=== PATIENT | male | born 1995 | race Caucasian/White ===

== ENCOUNTER 2019-11-07 16:41 | Emergency (ER) | payer OTHER, SELFPAY ==
[2019-11-07 16:57] VITALS: BP 148/80; PULSE 79; RESP 18; TEMP 36.8; O2SAT 100; BMI 22.4
--- NOTE | 2019-11-07 17:01 | DI.US.S_ITS ---
PROCEDURE: US RENAL COMPLETE INDICATIONS: HISTORY OF RENAL CALCULI, MULTIPLE STONES 11/04 RULE OUT TECHNIQUE: Real-time scanning was performed of the kidneys and bladder, with image documentation. COMPARISON: None. FINDINGS: Kidneys: Kidneys are normal in size. Right kidney measures 10.3 cm long; left kidney measures 10.9 cm long. Right renal cortical thickness is 1.0 cm; left renal cortical thickness is 1.6 cm. Renal cortical echotexture is normal. No hydronephrosis. Punctate echogenic foci are present bilaterally suggesting nonobstructing calculi. There is a simple 7 mm superior right renal cyst and a superior 2.5 cm diameter left renal cyst. Bladder: Pre-void bladder volume is 63 mL. Post-void residual is zero mL. Pre-void images demonstrate no intraluminal masses or stones. There is questionable thickening of the bladder wall versus incomplete distention. On pre-void images, the left ureteral jets a jet is noted with color Doppler interrogation. (Of note, ureteral jets may not be detectable in up to 25% of cases due to insufficient differences in specific gravity between ureteral and bladder urine). Miscellaneous: No free pelvic fluid. IMPRESSION: 1. No hydronephrosis. 2. Nonobstructing nephrolithiasis. 3. Questionable thickening of the bladder wall versus incomplete distention. No postvoid residual. Dictated by: Azul Daly M.D. on 11/07/2019 at 20:28 Approved by: Azul Daly M.D. on 11/07/2019 at 20:32
[2019-11-07 17:02] VITALS: PULSE 64; O2SAT 98
--- NOTE | 2019-11-07 17:03 | ED.ABDPAIN ---
HPI - Abdominal Pain <MAXI Esposito - Last Filed: 11/07/19 20:57> General Chief Complaint: Abdominal Pain Stated Complaint: THINKS KIDNEY STONES BACK PAIN Time Seen by Provider: 11/07/19 16:45 Source: patient Mode of arrival: Ambulatory Limitations: no limitations History of Present Illness HPI narrative: 23yo male with history of renal calculi in the past, presents to the emergency department for known renal calculi after being seen on 11/05/2019 at [facility]. He presents emergency department for worsening vomiting and pain. Patient states he has bilateral back pain and has been vomiting frequently. He states his last episode was at 1530. He has been able to keep some fluids down not a lot of food. He reports bilateral flank pain that is worse on the left than the right and right-sided abdominal pain--reports this is consistent with previous pain 2 days ago.. Patient denies any blood in the urine, chest pain, shortness of breath, fevers, chills, dizziness, or any other concerns. Related Data Previous Rx's Medication Instructions Recorded ondansetron HCl 4 mg PO Q6H PRN #20 tab 11/07/19 tamsulosin 0.4 mg PO BEDTIME #20 cap 11/07/19 Allergies Allergy/AdvReac Type Severity Reaction Status Date / Time No Known Drug Allergies Allergy Verified 11/07/19 16:57 Review of Systems <MAXI Esposito - Last Filed: 11/07/19 20:57> Review of Systems Narrative: REVIEW OF SYSTEMS: GENERAL: Denies fever, chills, malaise, or wt. loss. HENT: No head trauma. EYES: No vision changes. CARDIOVASCULAR: No chest pain. RESPIRATORY: No shortness of breath or cough. GASTROINTESTINAL: Complains of abdominal pain, see HPI GENITOURINARY: No reports flank pain, see HPI. MUSCULOSKELETAL: No pain, weakness, or trauma. INTEGUMENTARY: No rash, lesions, or pruritus. NEURO: No numbness or tingling. PSYCH: No behavior or mood changes. Patient History <MAXI Esposito - Last Filed: 11/07/19 20:57> Medical History No significant medical problems (Acute) Social History Smoking Status: Never smoker Smoking Status: Never smoker Substance Use Type: does not use Exam <MAXI Esposito - Last Filed: 11/07/19 20:57> Initial Vital Signs Initial Vital Signs: Vital Signs Temperature 98.2 F 11/07/19 16:57 Pulse Rate 79 11/07/19 16:57 Respiratory Rate 18 11/07/19 16:57 Blood Pressure 148/80 H 11/07/19 16:57 Pulse Oximetry 100 11/07/19 16:57 PHYSICAL EXAMINATION: GENERAL: Well groomed, alert, and cooperative. Answers questions promptly and appropriately. Vital signs noted. HENT: Normocephalic, atraumatic. Hearing intact. Oral mucosa is pink and moist. EYES: Conjunctiva pink, sclera white, no periorbital swelling. CARDIOVASCULAR: S1 and S2 sounds normal. Regular rate and rhythm, no murmurs, clicks, or bruits. No pedal edema. RESPIRATORY: Normal respiratory rate, trachea midline, airway patent. No stridor, nasal flaring or accessory muscle use. Lungs are clear in all bolaños without wheeze, rhonchi, or crackles. GASTROINTESTINAL: Bowel sounds normoactive. Abdomen with right upper quadrant pain. No organomegaly, no palpable masses. GENITALURINARY: Bilateral CVA tenderness. MUSCULOSKELETAL: Normal gait and coordination. Equal tone and mass bilaterally. EXTREMITIES: CMS intact, no pedal edema. SKIN: Warm, dry, soft, appropriate color for ethnicity. No lesions, rashes, or wounds to visualized areas. NEURO: Alert and Oriented X 3. Good coordination. No ataxia, or sensory deficits, or cognitive issues. PSYCH: Appropriate affect and mood. <Nick Newell DO - Last Filed: 11/08/19 01:24> Initial Vital Signs Initial Vital Signs: Vital Signs Temperature 98.2 F 11/07/19 16:57 Pulse Rate 79 11/07/19 16:57 Respiratory Rate 18 11/07/19 16:57 Blood Pressure 148/80 H 11/07/19 16:57 Pulse Oximetry 100 11/07/19 16:57 Course <MAXI Esposito - Last Filed: 11/07/19 20:57> Course Course Narrative: Records obtained from [facility] for visit on 11/04/2019: CT abdomen pelvis: Shows nonobstructing bilateral nephrolithiasis, no greater than 3 mm. Mild urinary bladder wall thickening. Labs: WBC: 8, RBC: 5.11, Na 137, K 103, creatinine 0.9, BUN 18, GFR 107, lipase 26. Patient was discharged with tamsulosin and Percocet. Patient initially given NS 1L, ondansetron, and Toradol in the emergency department. Upon re-evaluation, patient reports reduced pain and nausea. Updated on ultrasound results, discussed plan of care, patient agreed with plan of care. Orders Ordered: ED Orders 11/07/19 17:00 Complete Blood Count AUTO DIFF Stat Comprehensive Metabolic Panel Stat Lipase Stat 11/07/19 17:01 US renal complete Stat 11/07/19 17:57 Urinalysis and Microscopic Stat Discontinued Medications Sodium Chloride (Normal Saline 0.9%) 1,000 mls @ 1,000 mls/hr IV BOLUS ONE Stop: 11/07/19 18:01 Last Infusion: 11/07/19 18:00 Dose: 0 mls/hr Documented by: Admin: 11/07/19 17:09 Dose: 1,000 mls/hr Documented by: MOMO Ketorolac Tromethamine (Toradol) 30 mg IV NOW ONE Stop: 11/07/19 17:03 Last Admin: 11/07/19 17:08 Dose: 30 mg Documented by: MOMO Ondansetron HCl (Zofran) 4 mg IV NOW ONE Stop: 11/07/19 17:03 Last Admin: 11/07/19 17:09 Dose: 4 mg Documented by: MOMO Consultations Consultation #1: Patient staffed with Dr. Newell discussed tests results and plan of care. Vital Signs Vital signs: Vital Signs - 8 hr 11/07/19 17:30 11/07/19 18:00 11/07/19 19:06 Pulse Rate 63 56 L 57 L Respiratory Rate 13 Blood Pressure 112/53 L Pulse Oximetry 99 97 100 <Nick Newell, DO - Last Filed: 11/08/19 01:24> Orders Ordered: ED Orders 11/07/19 17:00 Complete Blood Count AUTO DIFF Stat Comprehensive Metabolic Panel Stat Lipase Stat 11/07/19 17:01 US renal complete Stat 11/07/19 17:57 Urinalysis and Microscopic Stat Discontinued Medications Sodium Chloride (Normal Saline 0.9%) 1,000 mls @ 1,000 mls/hr IV BOLUS ONE Stop: 11/07/19 18:01 Last Infusion: 11/07/19 18:00 Dose: 0 mls/hr Documented by: Admin: 11/07/19 17:09 Dose: 1,000 mls/hr Documented by: MOMO Ketorolac Tromethamine (Toradol) 30 mg IV NOW ONE Stop: 11/07/19 17:03 Last Admin: 11/07/19 17:08 Dose: 30 mg Documented by: MOMO Ondansetron HCl (Zofran) 4 mg IV NOW ONE Stop: 11/07/19 17:03 Last Admin: 11/07/19 17:09 Dose: 4 mg Documented by: MOMO Vital Signs Vital signs: Vital Signs - 8 hr 11/07/19 17:30 11/07/19 18:00 11/07/19 19:06 Pulse Rate 63 56 L 57 L Respiratory Rate 13 Blood Pressure 112/53 L Pulse Oximetry 99 97 100 MDM - Abdominal Pain <MAXI Esposito - Last Filed: 11/07/19 20:57> Medical Records Attestation: I reviewed the patient's medical records. Lab Data Attestation: I reviewed the patient's lab results. Result diagrams: 11/07/19 17:00 11/07/19 17:00 Labs: Lab Results 11/07/19 11/07/19 11/07/19 Range/Units 17:00 17:00 17:00 WBC 7.1 (4.5-11.0) X10^3/uL RBC 5.09 (4.5-5.9) X10^6/uL Hgb 15.3 (13.5-17.5) g/dL Hct 44.4 (41-53) % MCV 87.2 (80-100) fL MCH 30.0 (26-34) PG MCHC 34.4 (30-36) % RDW 12.6 (11.6-14.8) % Plt Count 238 (150-400) X10^3/uL Neut % (Auto) 58.2 (50-75) % Lymph % (Auto) 31.1 (25-40) % Josephine % (Auto) 7.8 (3-14) % Eos % (Auto) 2.2 (2-4) % Baso % (Auto) 0.7 (0-2) % Neut # (Auto) 4100 (8401-8942) /uL Lymph # (Auto) 2200 (2636-3038) /uL Josephine # (Auto) 600 (0-900) /uL Eos # (Auto) 200 (0-450) /uL Baso # (Auto) 100 (0-100) /uL Sodium 138 (137-145) mmol/L Potassium 4.2 (3.4-5.1) mmol/L Chloride 103 (98-107) mmol/L Carbon Dioxide 28 (22-32) mmol/L BUN 18 (9-20) mg/dL Creatinine 0.84 (0.66-1.25) mg/dL Estimated GFR > 60.0 (>60) mL/min BUN/Creatinine Ratio 21.4 (6-22) Glucose 101 H (70-100) mg/dL Calcium 9.5 (8.4-10.2) mg/dL Total Bilirubin 0.8 (0.2-1.3) mg/dL AST 25 (17-59) IU/L ALT 19 (<50) IU/L Alkaline Phosphatase 60 (38-126) U/L Total Protein 7.3 (6.3-8.2) g/dL Albumin 4.5 (3.5-5.0) g/dL Globulin 2.8 (1.7-4.1) g/dL Albumin/Globulin Ratio 1.6 (1.0-2.8) Lipase 28 (23-300) U/L Urine Color Urine Appearance Urine pH (4.5-8.0) Ur Specific [place] (1.000-1.035) Urine Protein (Negative) Urine Glucose (UA) (Negative) g/dL Urine Ketones (NEGATIVE) Urine Occult Blood (Negative) Urine Nitrate (Negative) Urine Bilirubin (NEGATIVE) Urine Urobilinogen (0.2) E.U./dL Ur Leukocyte Esterase (NEGATIVE) Urine RBC (0-5/HPF) Urine WBC (0-5/HPF) Calcium Oxalate Crystal Urine Bacteria (None) Ur Culture Indicated? 11/07/19 Range/Units 17:57 WBC (4.5-11.0) X10^3/uL RBC (4.5-5.9) X10^6/uL Hgb (13.5-17.5) g/dL Hct (41-53) % MCV (80-100) fL MCH (26-34) PG MCHC (30-36) % RDW (11.6-14.8) % Plt Count (150-400) X10^3/uL Neut % (Auto) (50-75) % Lymph % (Auto) (25-40) % Josephine % (Auto) (3-14) % Eos % (Auto) (2-4) % Baso % (Auto) (0-2) % Neut # (Auto) (5280-5384) /uL Lymph # (Auto) (0431-1163) /uL Josephine # (Auto) (0-900) /uL Eos # (Auto) (0-450) /uL Baso # (Auto) (0-100) /uL Sodium (137-145) mmol/L Potassium (3.4-5.1) mmol/L Chloride (98-107) mmol/L Carbon Dioxide (22-32) mmol/L BUN (9-20) mg/dL Creatinine (0.66-1.25) mg/dL Estimated GFR (>60) mL/min BUN/Creatinine Ratio (6-22) Glucose (70-100) mg/dL Calcium (8.4-10.2) mg/dL Total Bilirubin (0.2-1.3) mg/dL AST (17-59) IU/L ALT (<50) IU/L Alkaline Phosphatase (38-126) U/L Total Protein (6.3-8.2) g/dL Albumin (3.5-5.0) g/dL Globulin (1.7-4.1) g/dL Albumin/Globulin Ratio (1.0-2.8) Lipase (23-300) U/L Urine Color Yellow Urine Appearance Clear Urine pH 5.5 (4.5-8.0) Ur Specific [place] 1.025 (1.000-1.035) Urine Protein Negative (Negative) Urine Glucose (UA) Negative (Negative) g/dL Urine Ketones Negative (NEGATIVE) Urine Occult Blood Negative (Negative) Urine Nitrate Negative (Negative) Urine Bilirubin Negative (NEGATIVE) Urine Urobilinogen 0.2 (0.2) E.U./dL Ur Leukocyte Esterase Negative (NEGATIVE) Urine RBC None seen (0-5/HPF) Urine WBC 0-1/hpf (0-5/HPF) Calcium Oxalate Crystal Occasional H Urine Bacteria None seen (None) Ur Culture Indicated? Cult not indicated Imaging Data Renal Ultrasound: Radiologist's Impression: [address] [address] Ultrasound Report Signed Patient: Humberto Starkey RMR#: [id number] : 1995Acct:[id number] Age/Sex: MDate of Service: 11/07/19 Loc: ED Accession Number: [id number] Procedure: US renal complete Ordering Provider: Dionna Aj PROCEDURE: US RENAL COMPLETE INDICATIONS: HISTORY OF RENAL CALCULI, MULTIPLE STONES 11/04 RULE OUT TECHNIQUE: Real-time scanning was performed of the kidneys and bladder, with image documentation. COMPARISON: None. FINDINGS: Kidneys: Kidneys are normal in size. Right kidney measures 10.3 cm long; left kidney measures 10.9 cm long. Right renal cortical thickness is 1.0 cm; left renal cortical thickness is 1.6 cm. Renal cortical echotexture is normal. No hydronephrosis. Punctate echogenic foci are present bilaterally suggesting nonobstructing calculi. There is a simple 7 mm superior right renal cyst and a superior 2.5 cm diameter left renal cyst. Bladder: Pre-void bladder volume is 63 mL. Post-void residual is zero mL. Pre-void images demonstrate no intraluminal masses or stones. There is questionable thickening of the bladder wall versus incomplete distention. On pre-void images, the left ureteral jets a jet is noted with color Doppler interrogation. (Of note, ureteral jets may not be detectable in up to 25% of cases due to insufficient differences in specific gravity between ureteral and bladder urine). Miscellaneous: No free pelvic fluid. IMPRESSION: 1. No hydronephrosis. 2. Nonobstructing nephrolithiasis. 3. Questionable thickening of the bladder wall versus incomplete distention. No postvoid residual. Dictated by: Azul Daly M.D. on 11/07/2019 at 20:28 Approved by: Azul Daly M.D. on 11/07/2019 at 20:32 MDM Narrative Medical decision making narrative: 23-year-old male presenting to the emergency department for known nephrolithiasis, patient returns emergency department for continued pain. pharmacy technologist initially saw a stone within the ureter within the prostate, official read did not mention this, however there is mention of left ureteral jet color on Doppler interrogation. Incidental renal cysts were noted. Laboratory work is non-remarkable, renal function is within normal limits. No hydronephrosis noted. Patient was prescribed nausea medicine and tamsulosin, he was referred to urologist for further follow-up and evaluation. No signs of bacterial infection his urine was without blood or bacteria. Calcium oxalate crystals were noted in the urine. Return precautions given for new or worsening symptoms. Patient agreed to plan of care verbalized understanding. <Nick Newell, - Last Filed: 11/08/19 01:24> Lab Data Labs: Lab Results 11/07/19 11/07/19 11/07/19 Range/Units 17:00 17:00 17:00 WBC 7.1 (4.5-11.0) X10^3/uL RBC 5.09 (4.5-5.9) X10^6/uL Hgb 15.3 (13.5-17.5) g/dL Hct 44.4 (41-53) % MCV 87.2 (80-100) fL MCH 30.0 (26-34) PG MCHC 34.4 (30-36) % RDW 12.6 (11.6-14.8) % Plt Count 238 (150-400) X10^3/uL Neut % (Auto) 58.2 (50-75) % Lymph % (Auto) 31.1 (25-40) % Josephine % (Auto) 7.8 (3-14) % Eos % (Auto) 2.2 (2-4) % Baso % (Auto) 0.7 (0-2) % Neut # (Auto) 4100 (6569-5206) /uL Lymph # (Auto) 2200 (9185-5163) /uL Josephine # (Auto) 600 (0-900) /uL Eos # (Auto) 200 (0-450) /uL Baso # (Auto) 100 (0-100) /uL Sodium 138 (137-145) mmol/L Potassium 4.2 (3.4-5.1) mmol/L Chloride 103 (98-107) mmol/L Carbon Dioxide 28 (22-32) mmol/L BUN 18 (9-20) mg/dL Creatinine 0.84 (0.66-1.25) mg/dL Estimated GFR > 60.0 (>60) mL/min BUN/Creatinine Ratio 21.4 (6-22) Glucose 101 H (70-100) mg/dL Calcium 9.5 (8.4-10.2) mg/dL Total Bilirubin 0.8 (0.2-1.3) mg/dL AST 25 (17-59) IU/L ALT 19 (<50) IU/L Alkaline Phosphatase 60 (38-126) U/L Total Protein 7.3 (6.3-8.2) g/dL Albumin 4.5 (3.5-5.0) g/dL Globulin 2.8 (1.7-4.1) g/dL Albumin/Globulin Ratio 1.6 (1.0-2.8) Lipase 28 (23-300) U/L Urine Color Urine Appearance Urine pH (4.5-8.0) Ur Specific [place] (1.000-1.035) Urine Protein (Negative) Urine Glucose (UA) (Negative) g/dL Urine Ketones (NEGATIVE) Urine Occult Blood (Negative) Urine Nitrate (Negative) Urine Bilirubin (NEGATIVE) Urine Urobilinogen (0.2) E.U./dL Ur Leukocyte Esterase (NEGATIVE) Urine RBC (0-5/HPF) Urine WBC (0-5/HPF) Calcium Oxalate Crystal Urine Bacteria (None) Ur Culture Indicated? 11/07/19 Range/Units 17:57 WBC (4.5-11.0) X10^3/uL RBC (4.5-5.9) X10^6/uL Hgb (13.5-17.5) g/dL Hct (41-53) % MCV (80-100) fL MCH (26-34) PG MCHC (30-36) % RDW (11.6-14.8) % Plt Count (150-400) X10^3/uL Neut % (Auto) (50-75) % Lymph % (Auto) (25-40) % Josephine % (Auto) (3-14) % Eos % (Auto) (2-4) % Baso % (Auto) (0-2) % Neut # (Auto) (8041-3355) /uL Lymph # (Auto) (4723-3511) /uL Josephine # (Auto) (0-900) /uL Eos # (Auto) (0-450) /uL Baso # (Auto) (0-100) /uL Sodium (137-145) mmol/L Potassium (3.4-5.1) mmol/L Chloride (98-107) mmol/L Carbon Dioxide (22-32) mmol/L BUN (9-20) mg/dL Creatinine (0.66-1.25) mg/dL Estimated GFR (>60) mL/min BUN/Creatinine Ratio (6-22) Glucose (70-100) mg/dL Calcium (8.4-10.2) mg/dL Total Bilirubin (0.2-1.3) mg/dL AST (17-59) IU/L ALT (<50) IU/L Alkaline Phosphatase (38-126) U/L Total Protein (6.3-8.2) g/dL Albumin (3.5-5.0) g/dL Globulin (1.7-4.1) g/dL Albumin/Globulin Ratio (1.0-2.8) Lipase (23-300) U/L Urine Color Yellow Urine Appearance Clear Urine pH 5.5 (4.5-8.0) Ur Specific [place] 1.025 (1.000-1.035) Urine Protein Negative (Negative) Urine Glucose (UA) Negative (Negative) g/dL Urine Ketones Negative (NEGATIVE) Urine Occult Blood Negative (Negative) Urine Nitrate Negative (Negative) Urine Bilirubin Negative (NEGATIVE) Urine Urobilinogen 0.2 (0.2) E.U./dL Ur Leukocyte Esterase Negative (NEGATIVE) Urine RBC None seen (0-5/HPF) Urine WBC 0-1/hpf (0-5/HPF) Calcium Oxalate Crystal Occasional H Urine Bacteria None seen (None) Ur Culture Indicated? Cult not indicated Discharge Plan Departure Patient Disposition: Home Clinical Impression: Calculus, renal Discharge Date/Time: 11/07/19 19:14 Instructions: DI for Kidney Stones Activity Restrictions/Additional Instructions: Thank you for entrusting me with your care today. As discussed, there is a kidney stone in the part of urethra that is by your prostate. There multiple kidney stones noted in your kidneys which are not causing pain at this time. Today are small enough to pass at this time. I have given you prescription for tamsulosin which will help dilate the ureters to facilitate passage of kidney stones. Additionally, I have given you nausea medication. I have also referred due to urologist, please call to make an appointment for further evaluation testing especially if you continue to have multiple kidney stones. Return emergency department for any new or worsening symptoms such as severe pain, uncontrollable vomiting,, pain with urination, fevers, or other concerns. Use the oxycodone that was previously given to for pain control as well as ibuprofen. Prescriptions: New tamsulosin 0.4 mg capsule 0.4 mg PO BEDTIME Qty: 20 RF: 0 ondansetron HCl 4 mg tablet 4 mg PO Q6H PRN (Reason: nausea and vomiting) Qty: 20 RF: 0 Referrals: Shanelle Nunez MD [Physician] - <Nick Newell DO - Last Filed: 11/08/19 01:24> Cosign ED Attending Cosignature Attestation: I was immediately available in the department for consultation. This documentation has been reviewed and I agree with assessment and plan. Supervised by Nick Newell DO
[2019-11-07 17:07] LABS: Add Manual Diff / Slide Review NO; Basophils Absolute Auto 100 /uL (0-100); Basophils Percent Auto 0.7 % (0-2); Eosinophils Absolute Auto 200 /uL (0-450); Eosinophils Percent Auto 2.2 % (2-4); Hematocrit 44.4 % (41-53); Hemoglobin 15.3 g/dL (13.5-17.5); Lymphocytes Absolute Auto 2200 /uL (1100-4500); Lymphocytes Percent Auto 31.1 % (25-40); Mean Corpuscular HGB Conc 34.4 % (30-36); Mean Corpuscular Volume 87.2 fL (80-100); Monocytes Absolute Auto 600 /uL (0-900); Monocytes Percent Auto 7.8 % (3-14); Neutrophils Absolute Auto 4100 /uL (1500-7000); Neutrophils Percent Auto 58.2 % (50-75); Platelet Count 238 X10^3/uL (150-400); Red Blood Cell Count 5.09 X10^6/uL (4.5-5.9); Red Cell Distribution Width 12.6 % (11.6-14.8); White Blood Cell Count 7.1 X10^3/uL (4.5-11.0)
[2019-11-07] MEDS: KETOROLAC 60 MG/2 ML VIAL 30 MG IV (17:08)
[2019-11-07] MEDS: ONDANSETRON 4 MG/2 ML INJ IV (17:09)
[2019-11-07] MEDS: SODIUM CHLORIDE 0.9% 1,000 ML 1000 ML IV (17:09)
[2019-11-07 17:18] LABS: Alanine Aminotransferase 19 IU/L (<50); Albumin 4.5 g/dL (3.5-5.0); Albumin Globulin Ratio 1.6 (1.0-2.8); Alkaline Phosphatase 60 U/L (38-126); Aspartate Aminotransferase 25 IU/L (17-59); BUN Creatinine Ratio 21.4 (6-22); Bilirubin Total 0.8 mg/dL (0.2-1.3); Blood Urea Nitrogen 18 mg/dL (9-20); Calcium 9.5 mg/dL (8.4-10.2); Carbon Dioxide 28 mmol/L (22-32); Chloride 103 mmol/L (98-107); Estimated Glomerular Filt Rate > 60.0 mL/min (>60); Globulin 2.8 g/dL (1.7-4.1); Glucose 101 mg/dL (70-100); HEMOLYSIS < 15 (0-50); Lipase 28 U/L (23-300); Potassium 4.2 mmol/L (3.4-5.1); Sodium 138 mmol/L (137-145); Total Protein 7.3 g/dL (6.3-8.2)
[2019-11-07 17:30] VITALS: PULSE 63; O2SAT 99
[2019-11-07 18:00] VITALS: PULSE 56; O2SAT 97
[2019-11-07 18:22] LABS: Appearance Urine UA CLEAR; Bacteria Urine None Seen; Bilirubin Urine UA NEGATIVE (NEGATIVE); Color Urine UA YELLOW; Glucose Urine UA NEGATIVE (Negative); Ketones Urine UA NEGATIVE (NEGATIVE); Leukocyte Esterase Urine UA NEGATIVE (NEGATIVE); Nitrite Urine UA NEGATIVE (Negative); Occult Blood Urine UA NEGATIVE (Negative); Protein Urine UA NEGATIVE (Negative); RBC Urine None Seen (0-5/HPF); Specific Gravity Urine UA 1.025 (1.000-1.035); Urobilinogen Urine UA 0.2 E.U./dL (0.2); pH Urine UA 5.5 (4.5-8.0)
[2019-11-07 18:31] LABS: Calcium Oxalate Crystals Urine Occasional; Culture Indicated Urine Cult Not Indicated; WBC Urine 0-1/HPF (0-5/HPF)
[2019-11-07 19:06] VITALS: BP 112/53; PULSE 57; RESP 13; O2SAT 100
== END 2019-11-07 19:14 | disposition home or self-care (01) ==
PROVIDERS: Emergency Provider Nurse Practitioner
DX: N20.0 Calculus of kidney (principal); Z87.442 Personal history of urinary calculi; R11.10 Vomiting, unspecified
CPT/HCPCS: 36415; 76770; 80053; 81001; 83690; 85025; 96361; 96374; 96375; 99284; J1885; J2405

== ENCOUNTER 2020-02-22 22:18 | Emergency (ER) | payer OTHER, SELFPAY ==
[2020-02-22 22:25] VITALS: BP 119/77; PULSE 78; RESP 17; TEMP 36.8; O2SAT 98; BMI 23.1
[2020-02-22 23:10] LABS: Bacteria Urine None Seen; WBC Urine None Seen (0-5/HPF)
[2020-02-22 23:11] LABS: Culture Indicated Urine Cult Not Indicated; RBC Urine 0-1/HPF (0-5/HPF)
[2020-02-22 23:27] LABS: Ur Creatinine Normal (Normal); Ur Specific Gravity Normal (Normal); Urine pH Normal (Normal)
[2020-02-22 23:28] LABS: UR Morphine/Opiate cutoff 300 Negative (Negative); Urine Amphetamines Negative (Negative); Urine Barbiturates Negative (Negative); Urine Benzodiazepines Negative (Negative); Urine Cocaine Negative (Negative); Urine MDMA Negative (Negative); Urine Methadone Negative (Negative); Urine Methamphetamines Negative (Negative); Urine Oxycodone Negative (Negative); Urine Phencyclidine Negative (Negative); Urine Tetrahydrocannabinol Negative (Negative); Urine Tricyclic Antidepressant Negative (Negative)
[2020-02-22 23:55] LABS: Add Manual Diff / Slide Review NO; Basophils Absolute Auto 100 /uL (0-100); Basophils Percent Auto 0.6 % (0-2); Eosinophils Absolute Auto 200 /uL (0-450); Eosinophils Percent Auto 1.9 % (2-4); Hemoglobin 15.6 g/dL (13.5-17.5); Lymphocytes Absolute Auto 2200 /uL (1100-4500); Lymphocytes Percent Auto 24.5 % (25-40); Mean Corpuscular HGB Conc 33.9 % (30-36); Mean Corpuscular Hemoglobin 29.8 PG (26-34); Mean Corpuscular Volume 87.8 fL (80-100); Monocytes Absolute Auto 600 /uL (0-900); Monocytes Percent Auto 6.7 % (3-14); Neutrophils Absolute Auto 5900 /uL (1500-7000); Neutrophils Percent Auto 66.3 % (50-75); Platelet Count 305 X10^3/uL (150-400); Red Blood Cell Count 5.24 X10^6/uL (4.5-5.9); Red Cell Distribution Width 12.7 % (11.6-14.8); White Blood Cell Count 8.9 X10^3/uL (4.5-11.0)
[2020-02-23 00:11] LABS: Alanine Aminotransferase 17 IU/L (<50); Albumin 4.5 g/dL (3.5-5.0); Albumin Globulin Ratio 1.5 (1.0-2.8); Alkaline Phosphatase 62 U/L (38-126); Aspartate Aminotransferase 24 IU/L (17-59); BUN Creatinine Ratio 18.8 (6-22); Bilirubin Total 0.9 mg/dL (0.2-1.3); Blood Urea Nitrogen 16 mg/dL (9-20); Calcium 9.3 mg/dL (8.4-10.2); Carbon Dioxide 30 mmol/L (22-32); Chloride 105 mmol/L (98-107); Estimated Glomerular Filt Rate > 60.0 mL/min (>60); Ethanol (ETOH) < 10 mg/dL; Glucose 100 mg/dL (70-100); HEMOLYSIS < 15 (0-50); Sodium 142 mmol/L (137-145); Total Protein 7.5 g/dL (6.3-8.2)
[2020-02-23] MEDS: clonazePAM 0.5 MG TABLET 1 MG PO (00:28)
[2020-02-23 00:43] LABS: Thyroid Stimulating Hormone 0.338 uIU/mL (0.47-4.68)
[2020-02-23 01:15] VITALS: BP 110/69; PULSE 71; RESP 16; O2SAT 96
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
== END 2020-02-23 01:17 | disposition home or self-care (01) ==
PROVIDERS: Emergency Provider Emergency Medicine
DX: F43.11 Post-traumatic stress disorder, acute (principal)
CPT/HCPCS: 36415; 80053; 80305; 80320; 81003; 81015; 84443; 85025; 99283; 99284

== ENCOUNTER 2020-03-16 16:06 | Emergency (ER) | payer OTHER, SELFPAY ==
[2020-03-16 16:17] VITALS: BP 119/86; PULSE 94; RESP 18; TEMP 36.7; O2SAT 98
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
--- NOTE | 2020-03-16 17:00 | PC.NURSE ---
Friend at bedside. Patient is calm and cooperative. Denies current plan for SI. States can stay safe in ED and no thoughts of self-harm while in ED.
[2020-03-16 17:42] LABS: Add Manual Diff / Slide Review NO; Basophils Absolute Auto 100 /uL (0-100); Basophils Percent Auto 0.6 % (0-2); Eosinophils Absolute Auto 100 /uL (0-450); Eosinophils Percent Auto 0.7 % (2-4); Hematocrit 46.4 % (41-53); Hemoglobin 15.7 g/dL (13.5-17.5); Lymphocytes Absolute Auto 1900 /uL (1100-4500); Lymphocytes Percent Auto 19.1 % (25-40); Mean Corpuscular HGB Conc 33.8 % (30-36); Mean Corpuscular Hemoglobin 29.8 PG (26-34); Mean Corpuscular Volume 88.2 fL (80-100); Monocytes Absolute Auto 700 /uL (0-900); Neutrophils Absolute Auto 7300 /uL (1500-7000); Neutrophils Percent Auto 72.6 % (50-75); Platelet Count 278 X10^3/uL (150-400); Red Blood Cell Count 5.26 X10^6/uL (4.5-5.9); Red Cell Distribution Width 12.8 % (11.6-14.8); White Blood Cell Count 10.1 X10^3/uL (4.5-11.0)
[2020-03-16 17:47] LABS: Alanine Aminotransferase 19 IU/L (<50); Albumin 4.8 g/dL (3.5-5.0); Albumin Globulin Ratio 1.5 (1.0-2.8); Alkaline Phosphatase 52 U/L (38-126); Aspartate Aminotransferase 26 IU/L (17-59); BUN Creatinine Ratio 21.3 (6-22); Bilirubin Total 1.2 mg/dL (0.2-1.3); Blood Urea Nitrogen 16 mg/dL (9-20); Calcium 9.7 mg/dL (8.4-10.2); Carbon Dioxide 29 mmol/L (22-32); Chloride 105 mmol/L (98-107); Estimated Glomerular Filt Rate > 60.0 mL/min (>60); Ethanol (ETOH) < 10 mg/dL; Globulin 3.3 g/dL (1.7-4.1); Glucose 93 mg/dL (70-100); HEMOLYSIS 19 (0-50); Potassium 3.9 mmol/L (3.4-5.1); Sodium 139 mmol/L (137-145); Total Protein 8.1 g/dL (6.3-8.2)
[2020-03-16 18:00] LABS: Bacteria Urine None Seen; WBC Urine None Seen (0-5/HPF)
[2020-03-16 18:07] LABS: Appearance Urine UA CLEAR; Bilirubin Urine UA NEGATIVE (NEGATIVE); Color Urine UA YELLOW; Glucose Urine UA NEGATIVE (Negative); Ketones Urine UA NEGATIVE (NEGATIVE); Leukocyte Esterase Urine UA NEGATIVE (NEGATIVE); Nitrite Urine UA NEGATIVE (Negative); Occult Blood Urine UA 2+ (Negative); Protein Urine UA NEGATIVE (Negative); Specific Gravity Urine UA 1.025 (1.000-1.035); UR Morphine/Opiate cutoff 300 Negative (Negative); Ur Creatinine Normal (Normal); Ur Specific Gravity Normal (Normal); Urine Amphetamines Negative (Negative); Urine Barbiturates Negative (Negative); Urine Benzodiazepines Negative (Negative); Urine Cocaine Negative (Negative); Urine MDMA Negative (Negative); Urine Methadone Negative (Negative); Urine Methamphetamines Negative (Negative); Urine Oxycodone Negative (Negative); Urine Phencyclidine Negative (Negative); Urine Tetrahydrocannabinol Negative (Negative); Urine Tricyclic Antidepressant Negative (Negative); Urine pH Normal (Normal); Urobilinogen Urine UA 0.2 E.U./dL (0.2); pH Urine UA 5.5 (4.5-8.0)
[2020-03-16 18:13] LABS: Free T3, Triiodothyronine Free 3.86 pg/mL (2.77-5.27)
[2020-03-16 18:24] LABS: Culture Indicated Urine Cult Not Indicated; RBC Urine 5-10/HPF (0-5/HPF)
[2020-03-16 18:26] LABS: Thyroid Stimulating Hormone 1.07 uIU/mL (0.47-4.68)
[2020-03-16 20:19] LABS: COVID19 -Nasal RAPID Negative (Negative)
[2020-03-16] MEDS: LORazepam 0.5 MG TABLET PO (21:20)
== END 2020-03-16 21:15 ==
PROVIDERS: Emergency Provider Nurse Practitioner
DX: R45.851 Suicidal ideations (principal)
CPT/HCPCS: 36415; 80053; 80305; 80320; 81001; 84439; 84443; 84481; 85025; 87635; 99284

== ENCOUNTER 2021-08-09 16:39 | Emergency (ER) | payer OTHER, SELFPAY ==
[2021-08-09 17:13] VITALS: BP 146/73; PULSE 84; RESP 16; TEMP 36.9; O2SAT 97; BMI 22.4
[2021-08-09 18:34] VITALS: BP 126/68; PULSE 70; RESP 18; TEMP 37.1; O2SAT 99
--- NOTE | 2021-08-09 19:04 | ED_ITS ---
HPI - Extremity Injury (Lower) <Bari Joy PA-C - Last Filed: 08/09/21 19:10> General Chief Complaint: Extremity Injury, Lower Stated Complaint: Puncture right foot with nyla post History of Present Illness HPI Narrative: Patient is a 25-year-old male who presents to the ED with a small 2 cm laceration on the bottom of his right foot. He states that he was pushing of barbed wire fence post into the ground and struck his foot on the corner of the T-piece at the bottom of fence post. Went through the boot when he removed the boot he noticed some bleeding and the wound appeared deep. He is current on his tetanus incident happened a few hours ago prior to arrival. No other injury reported no difficulty with weight-bearing no obvious deformity. Related Data Previous Rx's Medication Instructions Recorded ondansetron HCl 4 mg tablet 4 mg PO Q6H PRN #20 tab 11/07/19 tamsulosin 0.4 mg capsule 0.4 mg PO BEDTIME #20 cap 11/07/19 clonazepam 0.5 mg tablet 0.5 mg PO DAILY #14 tab 02/23/20 prazosin 1 mg capsule 1 mg PO QPM #30 cap 02/23/20 Allergies Allergy/AdvReac Type Severity Reaction Status Date / Time No Known Drug Allergies Allergy Verified 11/07/19 16:57 Review of Systems <Bari Joy PA-C - Last Filed: 08/09/21 19:10> Review of Systems ROS Unobtainable: All systems reviewed & are unremarkable except as noted in HPI and below Constitutional Constitutional: Denies chills, Denies fatigue, Denies fever(s), Denies frequent falls, Denies lethargy and Denies weakness Eyes Eyes: Denies change in vision, Denies eye discharge, Denies irritation and Denies loss of vision ENT Ears, Nose, Mouth, and Throat: Denies change in voice, Denies dizziness, Denies neck pain, Denies sore throat and Denies throat swelling Cardiovascular Cardiovascular: Denies chest pain, Denies irregular heart rhythm, Denies lightheadedness, Denies palpitations, Denies dyspnea, Denies dyspnea on exertion and Denies orthopnea Respiratory Respiratory: Denies cough, Denies dyspnea, Denies dyspnea on exertion and Denies wheezing Gastrointestinal Gastrointestinal: Denies abdominal pain, Denies change in bowel habits, Denies diarrhea, Denies nausea and Denies vomiting Genitourinary Genitourinary: Denies hematuria, Denies flank pain, Denies urinary incontinence and Denies urinary urgency Musculoskeletal Musculoskeletal: Denies back pain, Denies muscle weakness, Denies neck pain, Denies numbness and Denies tingling Integumentary/Breasts Skin/Breast: Denies pruritus, Denies erythema, Denies rash and Reports wounds Neurologic Neurologic: Denies behavioral changes, Denies confusion, Denies dizziness, Denies frequent falls, Denies loss of vision, Denies numbness, Denies tingling and Denies weakness Psychiatric Psychiatric: Denies anxiety, Denies behavioral changes, Denies confusion, Denies depression, Denies homicidal ideation and Denies suicidal ideation Endocrine Endocrine: Denies fatigue, Denies flushing and Denies palpitations Hematologic/Lymphatic Hematologic/Lymphatic: Denies easy bruising Allergic/Immunologic Allergic/Immunologic: Denies urticaria, Denies throat swelling and Denies wheezing Patient History <Bari Joy PA-C - Last Filed: 08/09/21 19:10> Medical History (Updated 08/09/21 @ 19:10 by Bari Joy PA-C) Acute post-traumatic stress disorder Social History Smoking Status: Current every day smoker Smoking Status: Current every day smoker tobacco type: vaping alcohol intake frequency: holidays/special occasions only Substance Use Type: does not use Exam <Bari Joy PA-C - Last Filed: 08/09/21 19:10> Initial Vital Signs Initial Vital Signs: Vital Signs Temperature 98.4 F 08/09/21 17:13 Pulse Rate 84 08/09/21 17:13 Respiratory Rate 16 08/09/21 17:13 Blood Pressure 146/73 H 08/09/21 17:13 Pulse Oximetry 97 08/09/21 17:13 Const General: cooperative, healthy appearing, comfortable and well developed Nutritional Appearance: well nourished Orientation: Orientation Extrem Right lower extremity: foot Details: laceration (Bottom of the foot-2 cm laceration superficial) <Henna Elias DO - Last Filed: 08/10/21 03:13> Initial Vital Signs Initial Vital Signs: Vital Signs Temperature 98.4 F 08/09/21 17:13 Pulse Rate 84 08/09/21 17:13 Respiratory Rate 16 08/09/21 17:13 Blood Pressure 146/73 H 08/09/21 17:13 Pulse Oximetry 97 08/09/21 17:13 Procedures <Bari Joy PA-C - Last Filed: 08/09/21 19:10> Laceration Repair Laceration 1: Time of procedure: 18:55 Site: lower extremity (Bottom of the right foot) Side (If applicable): right Size (cm): 2 Description: irregular Depth: simple, single layer Local Anesthetic: lidocaine 1% and with bicarb Amount of anesthesia used (mL): 6 Skin layer closed with: nylon Size (cm): 4-0 Number of sutures: 3 Technique: simple, interrupted Course <Bari Joy PA-C - Last Filed: 08/09/21 19:10> Orders Ordered: Discontinued Medications Lidocaine/Sodium Bicarbonate (Lido 1%/Sod Bicarb 8.4% (10ml) 10 Ml Syringe) 10 ml INJ NOW ONE Stop: 08/09/21 18:50 Last Admin: 08/09/21 19:12 Dose: 10 ml Documented by: BTONER Vital Signs Vital signs: Vital Signs - 8 hr 08/09/21 19:17 Pulse Rate 81 Respiratory Rate 16 Blood Pressure 127/73 Pulse Oximetry 97 <Henna Elias DO - Last Filed: 08/10/21 03:13> Orders Ordered: Discontinued Medications Lidocaine/Sodium Bicarbonate (Lido 1%/Sod Bicarb 8.4% (10ml) 10 Ml Syringe) 10 ml INJ NOW ONE Stop: 08/09/21 18:50 Last Admin: 08/09/21 19:12 Dose: 10 ml Documented by: BTONER Vital Signs Vital signs: Vital Signs - 8 hr 08/09/21 19:17 Pulse Rate 81 Respiratory Rate 16 Blood Pressure 127/73 Pulse Oximetry 97 MDM - Extremity Injury (Lower) <SARA Fry Last Filed: 08/09/21 19:10> Differential Diagnosis Differential diagnosis: Likely other (Laceration) MDM Narrative Medical decision making narrative: Patient was evaluated for a small laceration on the bottom of his right foot. Bleeding was controlled wound was cleansed and explored appeared to be single air. Patient was anesthetized with 1% lidocaine and had 3 sutures placed. Patient tolerated well without any difficulties current on his tetanus vaccine patient will be discharged home and told to follow up in 7 days for suture removal. Patient was discharged home Discharge Plan Departure Patient Disposition: Home Clinical Impression: Laceration of lower extremity Instructions: DI for Laceration Repair Activity Restrictions/Additional Instructions: You had 3 sutures placed in your right foot. It is my recommendation that you keep it covered as much as possible. The sutures need to be removed within 7 days. You can have them removed at your primary care physician's office or you can return to the ED and will remove them here. Wash daily with soap and water. Monitor for signs of infection which include redness swelling pain discharge fever. If any of these symptoms occur he can return to the ED for re- evaluation. Thank you for the opportunity to care for you today. Prescriptions: No Action tamsulosin 0.4 mg capsule 0.4 mg PO BEDTIME Qty: 20 0RF ondansetron HCl 4 mg tablet 4 mg PO Q6H PRN (Reason: nausea and vomiting) Qty: 20 0RF prazosin 1 mg capsule 1 mg PO QPM Qty: 30 0RF clonazepam 0.5 mg tablet 0.5 mg PO DAILY Qty: 14 0RF <Henna Elias, - Last Filed: 08/10/21 03:13> [facility] Attending Kelly Attestation: I was immediately available in the department for consultation. Documentation has been reviewed. I agree with assessment and plan.
[2021-08-09] MEDS: LIDO 1%/SOD BICARB 8.4% (10ML) 10 ML SYRINGE INJ (19:12)
[2021-08-09 19:17] VITALS: BP 127/73; PULSE 81; RESP 16; O2SAT 97
== END 2021-08-09 19:18 | disposition home or self-care (01) ==
PROVIDERS: Emergency Provider Physician Assistant
DX: S91.311A Laceration without foreign body, right foot, initial encounter (principal); F17.290 Nicotine dependence, other tobacco product, uncomplicated; T75.89XA Other specified effects of external causes, initial encounter; X58.XXXA Exposure to other specified factors, initial encounter; Y93.89 Activity, other specified
CPT/HCPCS: 12001; 99281; 99283

== ENCOUNTER 2023-06-16 15:59 | Emergency (ER) | payer OTHER, SELFPAY ==
[2023-06-16] VITALS (9 sets, daily range): BP systolic 108–114; BP diastolic 58–77; PULSE 56–74; RESP 18; TEMP 37.1; O2SAT 98–100; BMI 22.4
[2023-06-16] MEDS: ONDANSETRON 4 MG/2 ML INJ IV (16:14)
[2023-06-16 16:40] LABS: Urine Volume 10mL (spun)
--- NOTE | 2023-06-16 16:40 | ED.ABDPAIN ---
HPI - Abdominal Pain <Rafa Sheikh MD - Last Filed: 06/23/23 09:03> General Chief Complaint: Abdominal Pain Stated Complaint: N/V T-1 ref [facility] Time Seen by Provider: 06/16/23 16:31 Source: patient Mode of arrival: Ambulatory History of Present Illness HPI narrative: Patient brought here by girlfriend. [facility] [employer] sent patient here for evaluation of the abdominal pain, left upper quadrant. Patient states has had 16 hours of left upper quadrant pain, started midnight last night. He was eating ramen with Siracha hot sauce. Patient denies any abdominal surgical history. No history of acid reflux or gastritis. Denies a new stressors in life. No urinary complaints. Eating or drinking makes pain worse. Patient states it is a sharp pain. It is 8/10. Patient in no distress at this time Related Data Previous Rx's Medication Instructions Recorded ondansetron HCl 4 mg tablet 4 mg PO Q6H PRN nausea and 11/07/19 vomiting #20 tabs tamsulosin 0.4 mg capsule 0.4 mg PO BEDTIME kidney stone #20 11/07/19 caps clonazepam 0.5 mg tablet 0.5 mg PO DAILY #14 tabs 02/23/20 prazosin 1 mg capsule 1 mg PO QPM #30 caps 02/23/20 sucralfate 100 mg/mL oral 10 ml PO QACHS #414 mL 06/16/23 suspension (Carafate) Allergies Allergy/AdvReac Type Severity Reaction Status Date / Time No Known Drug Allergies Allergy Verified 06/16/23 16:08 Review of Systems <Rafa Sheikh MD - Last Filed: 06/23/23 09:03> Review of Systems Narrative: GENERAL: negative chills, fatigue, malaise, fever, sweats. HEENT: negative sinus pain, ear pain, sore throat RESPIRATORY: negative dyspnea, cough CARDIOVASCULAR: negative chest pain, palpitations GASTROINTESTINAL: Positive nausea, vomiting, abdominal pain : negative dysuria, frequency, hematuria MUSCULOSKELETAL: negative muscle or bony pain SKIN: negative rash, skin lesions NEUROLOGIC: negative weakness, numbness ROS Unobtainable: All systems reviewed & are unremarkable except as noted in HPI and below Patient History <Rafa Sheikh MD - Last Filed: 06/23/23 09:03> Medical History (Updated 06/16/23 @ 18:35 by Alejo Potts DO) Acute post-traumatic stress disorder Social History Smoking Status: Former smoker Smoking Status: Former smoker tobacco type: vaping alcohol intake frequency: a few times a month Substance Use Type: does not use Exam <Rafa Sheikh MD - Last Filed: 06/23/23 09:03> Narrative Exam Narrative: GENERAL: in no distress, not toxic not dyspneic HEAD: Normocephalic. EYES: Pupils equal round ENT: Mucous membranes moist. NECK: Trachea midline. CARDIOVASCULAR: Regular rate and rhythm RESPIRATORY: Clear to auscultation. Breath sounds equal bilaterally. No wheezes, rales, or rhonchi. GASTROINTESTINAL: Abdomen soft, abdomen is flat, there is reproducible left upper quadrant tenderness. No peritoneal signs. Bowel sounds are present. No pain out of proportion to exam. No CVA tenderness. EXTREMITIES: No gross deformities. BACK: No flank tenderness. NEURO: AOx4. Clear speech SKIN: Warm and dry PSYCH: Not anxious, is cooperative Initial Vital Signs Initial Vital Signs: Vital Signs Temperature 98.8 F 06/16/23 16:03 Pulse Rate 56 L 06/16/23 16:03 Respiratory Rate 18 06/16/23 16:03 Blood Pressure 114/74 06/16/23 16:03 Pulse Oximetry 100 06/16/23 16:03 Oxygen Delivery Method Room Air 06/16/23 16:03 <Alejo Potts DO - Last Filed: 06/16/23 19:11> Initial Vital Signs Initial Vital Signs: Vital Signs Temperature 98.8 F 06/16/23 16:03 Pulse Rate 56 L 06/16/23 16:03 Respiratory Rate 18 06/16/23 16:03 Blood Pressure 114/74 06/16/23 16:03 Pulse Oximetry 100 06/16/23 16:03 Oxygen Delivery Method Room Air 06/16/23 16:03 Course <Rafa Sheikh MD - Last Filed: 06/23/23 09:03> Orders Ordered: Discontinued Medications Al Hydrox/Mg Hydrox/Simethicone 20 ml/ Lidocaine HCl 15 ml 0 ml PO NOW ONE Stop: 06/16/23 16:40 Last Admin: 06/16/23 16:53 Dose: 1 ml Documented By: DAMON Sodium Chloride (Normal Saline 0.9%) 1,000 mls @ 1,000 mls/hr IV BOLUS ONE Stop: 06/16/23 17:38 Last Infusion: 06/16/23 18:14 Dose: Infused Documented By: Admin: 06/16/23 16:54 Dose: 1,000 mls/hr Documented By: DAMON Ondansetron HCl (Ondansetron 4 Mg/2 Ml Inj) 4 mg IV NOW PRN PRN Reason: Nausea And Vomiting Last Admin: 06/16/23 16:14 Dose: 4 mg Documented By: DAMON Ondansetron HCl (Ondansetron 4 Mg Odt) 4 mg PO NOW PRN PRN Reason: Nausea And Vomiting Pantoprazole Sodium (Pantoprazole 40 Mg Vial) 40 mg IV NOW ONE Stop: 06/16/23 16:40 Last Admin: 06/16/23 16:54 Dose: 40 mg Documented By: DAMON Vital Signs Vital signs: Vital Signs - 8 hr 06/16/23 16:03 06/16/23 16:12 06/16/23 16:13 Temperature 98.8 F Pulse Rate 56 L 73 64 Respiratory Rate 18 Blood Pressure 114/74 Pulse Oximetry 100 98 98 Oxygen Delivery Method Room Air 06/16/23 16:13 06/16/23 16:30 06/16/23 16:30 Temperature Pulse Rate 74 Respiratory Rate Blood Pressure 108/58 L 114/77 Pulse Oximetry 98 Oxygen Delivery Method 06/16/23 17:00 06/16/23 17:00 06/16/23 17:30 Temperature Pulse Rate 57 L 58 L Respiratory Rate Blood Pressure 112/75 Pulse Oximetry 98 100 Oxygen Delivery Method 06/16/23 18:00 06/16/23 18:30 06/16/23 18:37 Temperature Pulse Rate 66 63 Respiratory Rate Blood Pressure 111/76 Pulse Oximetry 98 98 Oxygen Delivery Method 06/16/23 18:37 Temperature Pulse Rate 57 L Respiratory Rate Blood Pressure Pulse Oximetry 99 Oxygen Delivery Method <Alejo Potts DO - Last Filed: 06/16/23 19:11> Orders Ordered: Discontinued Medications Al Hydrox/Mg Hydrox/Simethicone 20 ml/ Lidocaine HCl 15 ml 0 ml PO NOW ONE Stop: 06/16/23 16:40 Last Admin: 06/16/23 16:53 Dose: 1 ml Documented By: DAMON Sodium Chloride (Normal Saline 0.9%) 1,000 mls @ 1,000 mls/hr IV BOLUS ONE Stop: 06/16/23 17:38 Last Infusion: 06/16/23 18:14 Dose: Infused Documented By: Admin: 06/16/23 16:54 Dose: 1,000 mls/hr Documented By: DAMON Ondansetron HCl (Ondansetron 4 Mg/2 Ml Inj) 4 mg IV NOW PRN PRN Reason: Nausea And Vomiting Last Admin: 06/16/23 16:14 Dose: 4 mg Documented By: DAMON Ondansetron HCl (Ondansetron 4 Mg Odt) 4 mg PO NOW PRN PRN Reason: Nausea And Vomiting Pantoprazole Sodium (Pantoprazole 40 Mg Vial) 40 mg IV NOW ONE Stop: 06/16/23 16:40 Last Admin: 06/16/23 16:54 Dose: 40 mg Documented By: DAMON Vital Signs Vital signs: Vital Signs - 8 hr 06/16/23 16:03 06/16/23 16:12 06/16/23 16:13 Temperature 98.8 F Pulse Rate 56 L 73 64 Respiratory Rate 18 Blood Pressure 114/74 Pulse Oximetry 100 98 98 Oxygen Delivery Method Room Air 06/16/23 16:13 06/16/23 16:30 06/16/23 16:30 Temperature Pulse Rate 74 Respiratory Rate Blood Pressure 108/58 L 114/77 Pulse Oximetry 98 Oxygen Delivery Method 06/16/23 17:00 06/16/23 17:00 06/16/23 17:30 Temperature Pulse Rate 57 L 58 L Respiratory Rate Blood Pressure 112/75 Pulse Oximetry 98 100 Oxygen Delivery Method 06/16/23 18:00 06/16/23 18:30 06/16/23 18:37 Temperature Pulse Rate 66 63 Respiratory Rate Blood Pressure 111/76 Pulse Oximetry 98 98 Oxygen Delivery Method 06/16/23 18:37 Temperature Pulse Rate 57 L Respiratory Rate Blood Pressure Pulse Oximetry 99 Oxygen Delivery Method MDM - Abdominal Pain <Rafa Sheikh MD - Last Filed: 06/23/23 09:03> Lab Data 06/16/23 16:42 06/16/23 16:42 Labs: Lab Results 06/16/23 06/16/23 Range/Units 16:22 16:42 WBC 6.0 (4.5-11.0) X10^3/uL RBC 4.99 (4.5-5.9) X10^6/uL Hgb 14.9 (13.5-17.5) g/dL Hct 43.4 (41-53) % MCV 86.9 (80-100) fL MCH 29.8 (26-34) PG MCHC 34.3 (30-36) % RDW 12.7 (11.6-14.8) % Plt Count 216 (150-400) X10^3/uL Neut % (Auto) 62.1 (50-75) % Lymph % (Auto) 25.4 (25-40) % Lynn % (Auto) 10.2 (3-14) % Eos % (Auto) 1.7 L (2-4) % Baso % (Auto) 0.6 (0-2) % Neut # (Auto) 3700 (3032-9422) /uL Lymph # (Auto) 1500 (8616-2403) /uL Lynn # (Auto) 600 (0-900) /uL Eos # (Auto) 100 (0-450) /uL Baso # (Auto) 0 (0-100) /uL Sodium 140 (137-145) mmol/L Potassium 3.8 (3.4-5.1) mmol/L Chloride 102 (98-107) mmol/L Carbon Dioxide 28 (22-32) mmol/L BUN 12 (9-20) mg/dL Creatinine 0.81 (0.66-1.25) mg/dL Estimated GFR > 60 (>60) mL/min BUN/Creatinine Ratio 14.8 (6-22) Glucose 109 H (70-100) mg/dL Calcium 9.1 (8.4-10.2) mg/dL Total Bilirubin 1.2 (0.2-1.3) mg/dL AST 27 (17-59) IU/L ALT 27 (<50) IU/L Alkaline Phosphatase 50 (38-126) U/L Total Protein 7.4 (6.3-8.2) g/dL Albumin 4.4 (3.5-5.0) g/dL Globulin 3.0 (1.7-4.1) g/dL Albumin/Globulin Ratio 1.5 (1.0-2.8) Lipase 29 (23-300) U/L Urine RBC 0-1/hpf (0-5/HPF) Urine WBC None seen (0-5/HPF) Ur Squamous Epith Cells None seen (0-5/HPF) Urine Bacteria None seen (None) Ur Culture Indicated? Cult not indicated Vol Urine Centrifuged 10ml (spun) Point of care testing: Urine Dip Bedside Urine Glucose Negative Bedside Urine Bilirubin - Negative Bedside Urine Ketone - Negative Urine Specific [place] 1.015 Bedside Urine Occult Blood +/- Bedside Urine pH 6.0 Bedside Urine Protein - Negative Bedside Urine Urobilinogen - Negative Bedside Urine Nitrite - Negative Bedside Urine Leukocytes - Negative Esterase MDM Narrative Medical decision making narrative: Patient brought here by girlfriend. [employer] sent patient here for evaluation of the abdominal pain, left upper quadrant. Patient states has had 16 hours of left upper quadrant pain, started midnight last night. He was eating ramen with Siracha hot sauce. Patient denies any abdominal surgical history. No history of acid reflux or gastritis. Denies a new stressors in life. No urinary complaints. Eating or drinking makes pain worse. Patient states it is a sharp pain. It is 8/10. Patient in no distress at this time After history and exam CBC CMP lipase EKG GI cocktail Zofran Protonix normal saline CT abdomen pelvis MDM CC: Left upper quadrant pain Complicating co-morbidities: None Data collected from: Patient Medical records reviewed: No recent visit for this complaint Differential considered: Includes but not limited to gastritis acid reflux diverticulitis Exam documented above, pertinent findings include: Tender left upper quadrant Lab Test results independently reviewed as above. Pertinent findings: WBC 6.0 AST 27 ALT 27 Independently reviewed EKG sinus rhythm rate [address] elevation or depression Imaging studies independently reviewed: CT abdomen pelvis Consultations: Treatments: Zofran Protonix normal saline GI cocktail Re-evaluations: Discussion: Diagnosis: 6:00 p.m.. Aguilar: Sign out to Dr Potts, CT imaging is pending. <Alejo Potts, DO - Last Filed: 06/16/23 19:11> Lab Data Attestation: I reviewed the patient's lab results. Labs: Lab Results 06/16/23 06/16/23 Range/Units 16:22 16:42 WBC 6.0 (4.5-11.0) X10^3/uL RBC 4.99 (4.5-5.9) X10^6/uL Hgb 14.9 (13.5-17.5) g/dL Hct 43.4 (41-53) % MCV 86.9 (80-100) fL MCH 29.8 (26-34) PG MCHC 34.3 (30-36) % RDW 12.7 (11.6-14.8) % Plt Count 216 (150-400) X10^3/uL Neut % (Auto) 62.1 (50-75) % Lymph % (Auto) 25.4 (25-40) % Lynn % (Auto) 10.2 (3-14) % Eos % (Auto) 1.7 L (2-4) % Baso % (Auto) 0.6 (0-2) % Neut # (Auto) 3700 (8965-1938) /uL Lymph # (Auto) 1500 (1592-3075) /uL Lynn # (Auto) 600 (0-900) /uL Eos # (Auto) 100 (0-450) /uL Baso # (Auto) 0 (0-100) /uL Sodium 140 (137-145) mmol/L Potassium 3.8 (3.4-5.1) mmol/L Chloride 102 (98-107) mmol/L Carbon Dioxide 28 (22-32) mmol/L BUN 12 (9-20) mg/dL Creatinine 0.81 (0.66-1.25) mg/dL Estimated GFR > 60 (>60) mL/min BUN/Creatinine Ratio 14.8 (6-22) Glucose 109 H (70-100) mg/dL Calcium 9.1 (8.4-10.2) mg/dL Total Bilirubin 1.2 (0.2-1.3) mg/dL AST 27 (17-59) IU/L ALT 27 (<50) IU/L Alkaline Phosphatase 50 (38-126) U/L Total Protein 7.4 (6.3-8.2) g/dL Albumin 4.4 (3.5-5.0) g/dL Globulin 3.0 (1.7-4.1) g/dL Albumin/Globulin Ratio 1.5 (1.0-2.8) Lipase 29 (23-300) U/L Urine RBC 0-1/hpf (0-5/HPF) Urine WBC None seen (0-5/HPF) Ur Squamous Epith Cells None seen (0-5/HPF) Urine Bacteria None seen (None) Ur Culture Indicated? Cult not indicated Vol Urine Centrifuged 10ml (spun) Point of care testing: Urine Dip Bedside Urine Glucose Negative Bedside Urine Bilirubin - Negative Bedside Urine Ketone - Negative Urine Specific [place] 1.015 Bedside Urine Occult Blood +/- Bedside Urine pH 6.0 Bedside Urine Protein - Negative Bedside Urine Urobilinogen - Negative Bedside Urine Nitrite - Negative Bedside Urine Leukocytes - Negative Esterase Imaging Data CT scan - abdomen/pelvis: Radiologist's Impression: PROCEDURE: CT ABDOMEN PELVIS W CON INDICATIONS: IV contrast only/left side abdominal pain TECHNIQUE: After the administration of intravenous contrast, axial sections acquired from the lung bases to the pubic symphysis. Coronal and sagittal reformats were performed. For radiation dose reduction, the following was used: automated exposure control, adjustment of mA and/or kV according to patient size. COMPARISON: None. FINDINGS: Image quality: Diagnostic. Lower Chest: No significant findings. ABDOMEN: Liver: No solid mass. Gallbladder: No radiopaque gallstones or wall thickening. Biliary ducts: No biliary dilation. Pancreas: No ductal dilation. Spleen: Size is within normal limits. Adrenal Glands: No adrenal nodules. Kidneys and Ureters: No hydronephrosis. No solid mass. No complex renal cystic lesion which requires follow up. Punctate nonobstructing right-sided nephrolithiasis. Stomach and Bowel: Normal colonic caliber, without significant wall thickening. Colonic diverticulosis without evidence of diverticulitis. Peritoneum: No abnormal intraperitoneal fluid. No free air. Ventral Wall: No significant ventral hernia. Abdominal Nodes: No retroperitoneal or mesenteric adenopathy by size criteria. Vessels: Aorta and inferior vena cava are normal in size. PELVIS: Pelvic Organs: Unremarkable. Bladder: No bladder wall thickening, accounting for underdistention. Pelvic Nodes: No enlarged lymph nodes. Miscellaneous: No inguinal hernias are seen. Bones: No aggressive osseous abnormality. IMPRESSION: No findings to explain the patient's left abdominal pain. Colonic diverticulosis without evidence of diverticulitis. No colitis. No obstructing nephrolithiasis. Punctate nonobstructing right-sided nephrolithiasis. MDM Narrative Medical decision making narrative: Patient brought here by girlfriend. [employer] sent patient here for evaluation of the abdominal pain, left upper quadrant. Patient states has had 16 hours of left upper quadrant pain, started midnight last night. He was eating ramen with Siracha hot sauce. Patient denies any abdominal surgical history. No history of acid reflux or gastritis. Denies a new stressors in life. No urinary complaints. Eating or drinking makes pain worse. Patient states it is a sharp pain. It is 8/10. Patient in no distress at this time After history and exam CBC CMP lipase EKG GI cocktail Zofran Protonix normal saline CT abdomen pelvis MDM CC: Left upper quadrant pain Complicating co-morbidities: None Data collected from: Patient Medical records reviewed: No recent visit for this complaint Differential considered: Includes but not limited to gastritis acid reflux diverticulitis Exam documented above, pertinent findings include: Tender left upper quadrant Lab Test results independently reviewed as above. Pertinent findings: WBC 6.0 AST 27 ALT 27 Independently reviewed EKG sinus rhythm rate [address] elevation or depression Imaging studies independently reviewed: CT abdomen pelvis Consultations: Treatments: Zofran Protonix normal saline GI cocktail Re-evaluations: Discussion: Diagnosis: 6:00 p.m.. Aguilar: Sign out to Dr Potts, CT imaging is pending. Dr. Potts: Received turned over. Review patient's history and physical exam. Patient reports improvement of symptoms after medications here in the ER. No fevers. Benign exam. Labs unremarkable. Patient tolerating oral intake. Suspect reflux. Discharge patient home with a prescription for Carafate. He was given return precautions follow-up instructions. He expressed understanding and agreement. Discharge Plan Departure Patient Disposition: Home Clinical Impression: Abdominal pain Instructions: DI for Abdominal Pain-Adult Activity Restrictions/Additional Instructions: Do recommend a bland diet for the next couple days. Use the Carafate as directed. Contact your medical department for follow-up. Return to the emergency department for new symptoms. Prescriptions: New sucralfate [Carafate] 100 mg/mL suspension 10 ml PO QACHS Qty: 414 0RF No Action tamsulosin 0.4 mg capsule 0.4 mg PO BEDTIME Qty: 20 0RF ondansetron HCl 4 mg tablet 4 mg PO Q6H PRN (Reason: nausea and vomiting) Qty: 20 0RF prazosin 1 mg capsule 1 mg PO QPM Qty: 30 0RF clonazepam 0.5 mg tablet 0.5 mg PO DAILY Qty: 14 0RF Referrals: Miscellaneous,Doctor, MD [Primary Care Provider] - Stand Alone Forms: Patient Portal/API
[2023-06-16 16:41] LABS: Bacteria Urine None Seen; Culture Indicated Urine Cult Not Indicated; RBC Urine 0-1/HPF (0-5/HPF); WBC Urine None Seen (0-5/HPF)
[2023-06-16 16:45] LABS: Squamous Epithelial Cell Urine None Seen (0-5/HPF)
[2023-06-16 16:52] LABS: Add Manual Diff / Slide Review NO; Basophils Absolute Auto 0 /uL (0-100); Basophils Percent Auto 0.6 % (0-2); Eosinophils Absolute Auto 100 /uL (0-450); Eosinophils Percent Auto 1.7 % (2-4); Hematocrit 43.4 % (41-53); Hemoglobin 14.9 g/dL (13.5-17.5); Lymphocytes Absolute Auto 1500 /uL (1100-4500); Lymphocytes Percent Auto 25.4 % (25-40); Mean Corpuscular HGB Conc 34.3 % (30-36); Mean Corpuscular Hemoglobin 29.8 PG (26-34); Mean Corpuscular Volume 86.9 fL (80-100); Monocytes Absolute Auto 600 /uL (0-900); Monocytes Percent Auto 10.2 % (3-14); Neutrophils Absolute Auto 3700 /uL (1500-7000); Neutrophils Percent Auto 62.1 % (50-75); Platelet Count 216 X10^3/uL (150-400); Red Blood Cell Count 4.99 X10^6/uL (4.5-5.9); Red Cell Distribution Width 12.7 % (11.6-14.8)
[2023-06-16] MEDS: MAG HYDROX/ALUMINUM/SIMETH SUS 20 ML, LIDOCAINE VISCOUS 2% 15 ML PO (16:53)
[2023-06-16] MEDS: PANTOPRAZOLE 40 MG VIAL IV (16:54)
[2023-06-16] MEDS: SODIUM CHLORIDE 0.9% 1,000 ML 1000 ML IV (16:54)
[2023-06-16 17:13] LABS: Alanine Aminotransferase 27 IU/L (<50); Albumin 4.4 g/dL (3.5-5.0); Albumin Globulin Ratio 1.5 (1.0-2.8); Alkaline Phosphatase 50 U/L (38-126); Aspartate Aminotransferase 27 IU/L (17-59); BUN Creatinine Ratio 14.8 (6-22); Bilirubin Total 1.2 mg/dL (0.2-1.3); Blood Urea Nitrogen 12 mg/dL (9-20); Calcium 9.1 mg/dL (8.4-10.2); Carbon Dioxide 28 mmol/L (22-32); Chloride 102 mmol/L (98-107); Estimated Glomerular Filt Rate > 60 mL/min (>60); Glucose 109 mg/dL (70-100); HEMOLYSIS < 15 (0-50); Lipase 29 U/L (23-300); Potassium 3.8 mmol/L (3.4-5.1); Sodium 140 mmol/L (137-145); Total Protein 7.4 g/dL (6.3-8.2)
== END 2023-06-16 18:47 | disposition home or self-care (01) ==
PROVIDERS: Emergency Medicine; Emergency Provider Emergency Medicine
DX: R10.12 Left upper quadrant pain (principal)
CPT/HCPCS: 36415; 74177; 80053; 81003; 81015; 83690; 85025; 93005; 93010; 96361; 96374; 96375; 99284; C9113; J2405; Q9967